=== PATIENT | male | born 1985 | race African-American/Black ===

== ENCOUNTER 2016-12-04 20:35 | Emergency (ER) | payer SELFPAY ==
[~2016-12-04] VITALS: Ht 180.3 cm; Wt 77.9 kg
[~2016-12-04 20:35] MED LIST: NOHOMEMEDS
[2016-12-04 22:09] LABS: ADD MIUA? NO; BILIRUBIN NEGATIVE; BLOOD NEGATIVE; COLOR YELLOW ((YELLOW)); GLUCOSE (STRIP) NEGATIVE; KETONES NEGATIVE; LEUKOCYTES NEGATIVE; NITRITE NEGATIVE; PROTEIN (STRIP) NEGATIVE; SPECIFIC GRAVITY 1.028 (1.000-1.030)
[2016-12-05] VITALS: BP 122/80
[2016-12-06 13:20] LABS: CHLAMYDIA TRACHOMATIS NEGATIVE; NEISSERIA GONORRHOEAE NEGATIVE
== END 2016-12-05 00:01 | disposition home or self-care (01) ==
LOC: EME 20:35
PROVIDERS: Physician Assistant
DX: A63.0 Anogenital (venereal) warts (principal); Z11.3 Encounter for screening for infections with a predominantly sexual mode of transmission
CPT/HCPCS: 81003; 87491; 87591; 99281; 99284; J0696